=== PATIENT | female | born 1960 | race Caucasian/White ===

== ENCOUNTER 2016-05-27 10:35 | Emergency (ER) | payer OTHER ==
--- NOTE | ~2016-05-27 | HM ---
Unit #: [id number] #: [id number] Patient: CAMI CRUZ [id number] [facility]. [place], [place] [address] [id number] E MR#: [id number] NAME: CAMI CRUZ : 1960 SEX: F STUDY DATE/TIME: 06/04/2016 UNIT: [facility] ROOM: STUDY DESCRIPTION: HOLTER MONITOR Attending Physician: Joshua Fuentes D.O. Primary Care Physician: Jonathan Mojica M.D. CARDIOLOGY REPORT EXAM 24-hour Holter monitor FINDINGS 1. Underlying rhythm is normal sinus. Sinus rate varies between 42 as the slowest rate to 103 beats per minute as the maximal rate. 2. Frequent premature ventricular contractions are noted. There were 17,620 isolated PVCs. 332 premature ventricular couplets were recorded and there were 7 runs of ventricular tachycardia with a total of 22 beats. 3. Longest run of ventricular tachycardia consists of 4 beats at 1:39 p.m. 4. A 3-beat run of ventricular tachycardia at a rate of 125 beats per minute is seen. 5. Rare premature atrial contractions are seen with a total of 490 isolated PACs. 6. There were 2 runs of supraventricular tachycardia each consisting of 3 beats. Supraventricular tachycardia at a rate of 155 beats per minute with 1:1 AV conduction. 7. There is no significant AV gray slowing, no AV gray block, sinus arrest or sinus pauses noted. 8. Patient did not maintain any symptom or activity diary. IMPRESSION Abnormal 24-hour ambulatory monitoring shows: 1. Normal sinus rhythm with periods of sinus bradycardia. 2. Rare to occasional PACs. 3. Very frequent PVCs with 332 premature ventricular couplets and 7 runs of ventricular tachycardia. 4. PVCs are multifocal and multiform in origin. Dictated by... Tanisha Erazo TD: 06/04/2016 20:09 JOB #: [id number] Unit #: [id number] #: [id number] Patient: CAMI CRUZ CARDIOLOGY REPORT Page 1 of 1 X Felix Doshi MD HOLTER MONITOR REPORT
--- NOTE | ~2016-05-27 | CO ---
Unit #: [id number] #: [id number] Patient: CAMI AGOSTO [id number] [facility]. [place], [place] [address] [id number] E MR#: [id number] NAME: CAMI AGOSTO ROOM: Age: 55 Sex: F Admission Date: 05/27/2016 : 1960 Attending Physician: Joshua Fuentes D.O. Primary Care Physician: Jonathan Mojica M.D. Requesting Physician: Joshua Fuentes D.O. Consultation Date: 05/27/2016 CONSULTATION REPORT REASON FOR CONSULTATION Palpitations. HISTORY OF PRESENT ILLNESS Ms. Agosto is a 55-year-old, female with a history of coronary artery disease and coronary artery bypass grafting, once 16 years ago and the last approximately 8 years ago. She also has had a history of hypertension as well as a possible TIA. She was following up with Dr. Mojica for routine primary care visit this morning and it was thought that her heart rate was in the 30s. She was sent to the emergency room. She complained of no symptoms. No palpitations, no tachycardia, and no lightheadedness or dizziness. The monitor has been showing some occasional bigeminy with rates in the 60s and sinus rhythm. It is thought with (1) , probably the PVCs were felt, thus prompting a reading in the 30s. EKG has been completed, which shows sinus rhythm with PVCs as well. Currently, during my interview, she is feeling well with no complaints. No shortness of breath and no dizziness. This information is received from the patient as well as from record review. PRIOR CARDIAC TESTING HISTORY She states that she has not had any testing since her bypass surgery in 2008, except for an echocardiogram. PAST MEDICAL HISTORY Includes: 1. Drug overdose, 2013, with aspiration pneumonia, [facility]. 2. Coronary artery disease with coronary artery bypass grafting in 2009 range at [facility]. She also had coronary artery bypass grafting 15 years ago at [facility]. None of those records are available to me at this time. 3. Depression. 4. Hypertension. 5. 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 coli UTI and was hospitalized. 6. Seizure. 7. Blood clots. 8. Hepatitis C. 9. Hepatitis B. 10. Gastroesophageal reflux disease. 11. Pancreatitis. 12. Back fracture. 13. Chronic pain. Unit #: [id number] #: [id number] Patient: CAMI AGOSTO 14. COPD, advanced stage. 15. Large hiatal hernia. 16. Possible TIA, time unknown. ALLERGIES Include Cipro and codeine. HOME MEDICATIONS List is unknown as she states that she did not know she was going to be coming to the hospital. She did not bring a list of her medications. She does, though, remember that she takes a beta-melissa daily. SOCIAL HISTORY She smokes 1 pack a day or less and has been a smoker since age 8. She denies abuse of alcohol or drugs. FAMILY HISTORY Her mother of a NJ in her 60s. Her father at age 47 with an ulcer and pneumonia. She has a sister that also had coronary artery bypass grafting. REVIEW OF SYSTEMS GENERAL: Denies any fever, chills, flu-like symptoms, or unintentional weight loss. SKIN: Denies any rashes, ulcerations, or wounds. HEENT: Headache: Denied. Eyes: Denies any sudden change in vision. Ears: Denies any sudden changes in hearing or bleeding. Throat: Denies any problems swallowing. HEMATOLOGIC: Denies epistaxis, hemoptysis, hematuria, or melena. LUNGS: Positive for wheeze, cough, and shortness of breath; but no worse than normal and is at baseline. CHEST: Denies any pain, palpitations, tachycardia, PND, or orthopnea. GI: Denies any nausea, vomiting, diarrhea, constipation, or change in stools. GENITOURINARY: Denies any burning or urgency. EXTREMITIES: Denies any swelling or increased pain with walking. SPINE: She has chronic back pain, but no scoliosis. NEURO: No numbness, tingling. She had a seizure a few weeks ago, but denies any stroke-like symptoms, dizziness, unsteadiness, or falls. She does state that she had a sleep study a few years ago, but that she does not use CPAP and was only placed on oxygen for a short time. PHYSICAL EXAMINATION VITAL SIGNS: Blood pressure is 166/75, heart rate 72, respirations 20, temperature is 97.8, and 140 pounds. GENERAL: Well developed, well nourished, white female in no acute distress sitting in the bed. SKIN: No obvious rashes or ulcerations noted. HEENT: Eyes: PERRLA. No xanthelasma. Oral: Moist mucous membranes. No pallor. NECK: Right carotid bruit auscultated. No jugular vein distension. SPINE: No scoliosis. CHEST: Clear to auscultation bilaterally. No wheezes, rales, or rhonchi. CARDIAC: S1 and S2. No murmur, rub, gallop, or lift. ABDOMEN: Soft and nontender. Positive bowel sounds. EXTREMITIES: Bilateral pedal pulses +2. No edema. NEURO: Alert and oriented x3. Speech is clear. No obvious neuro deficits. Unit #: [id number] #: [id number] Patient: CAMI AGOSTO DIAGNOSTIC STUDIES LABORATORY: Include lipase of 15. PT of 11.7 and INR 1.1. Sodium 139, potassium 3.5, glucose 104, BUN 9, creatinine 0.9, AST 34, ALT 38, albumin 4.1, and magnesium 1.5. Troponin less than 0.05. Hemoglobin 15.3, hematocrit 46.1, platelets 404, and white blood cell count 13.2. CARDIOVASCULAR: EKG shows normal sinus rhythm with PVCs and ventricular rate of 64. IMPRESSION 1. PVCs and bigeminy. 2. Coronary artery disease with history of coronary artery bypass grafting. 3. Hypertension. 4. Seizure disorder. 5. Gastroesophageal reflux disease. 6. Right carotid bruit. PLAN I have discussed Mrs. Agosto with Dr. Fitzgerald. At this point, we will recommend a Holter monitor and follow up with Dr. Morrell in the next 3-4 weeks. At that time, we will evaluate for possible 2D echocardiogram and ultrasound of the carotid arteries. Thank you for this consultation. We will be happy to follow this patient as an outpatient in the future. Dictated by... Lexus Hernandes A.P.R.N. for Tanisha Da Silva/neida TD: 05/27/2016 13:19 JOB #: [id number] CONSULTATION REPORT Page 1 of 1 X X CONSULTATION REPORT
--- NOTE | ~2016-05-27 | EKG ---
PATIENT: CAMI CRUZ UNIT #: [id number] Ventricular Rate: 64 BPM Atrial Rate: 64 BPM P-R Interval: 116 ms QRS Duration: 94 ms Q-T Interval: 450 ms QTC Calculation(Bezet): 464 ms P [place]: 47 degrees Calculated R [place]: 32 degrees Calculated T [place]: -37 degrees Diagnosis Line: Sinus rhythm with occasional Premature ventricular Diagnosis Line: complexes Diagnosis Line: Possible Inferior infarct (cited on or before Diagnosis Line: 15-JAN-2016) Diagnosis Line: Abnormal ECG Diagnosis Line: When compared with ECG of 15-JAN-2016 18:15, Diagnosis Line: Premature ventricular complexes are now Present Diagnosis Line: T wave inversion more evident in Inferior leads Diagnosis Line: Confirmed by JENA LEONE MD ([id number]) on 05/28/2016 Diagnosis Line: 7:11:22 PM INTERPRETING MD: SULEMA CRAWFORD
--- NOTE | ~2016-05-27 | CR72 ---
[facility] A Service of [facility] RADIOLOGY TEXT RESULTS PATIENT: CAMI CRUZ LOCATION: [facility] : 56 UNIT #: [id number] AGE: [address]: Joshua Fuentes DO SEX: F ORDER DR: [id number] [facility] [address] [place], [place] [address] [id number] E MR#: [id number] Acc #: [id number] NAME: CAMI CRUZ : 1960 SEX: F STUDY DATE/TIME: 05/27/2016 10:28 UNIT: [facility] ROOM: STUDY DESCRIPTION: CR Chest Single View Portable Attending Physician: Joshua Fuentes D.O. Ordering Physician: Joshua Fuentes D.O. Primary Care Physician: Jonathan Mojica M.D. MEDICAL IMAGING REPORT This report is preliminary unless electronic signature is present EXAM Portable chest x-ray, 05/27/2016. HISTORY Low heart rate. Decreased heart rate. Short of air with activity. Duration today. CABG x2. Current smoker. TECHNIQUE AP left anterior oblique view of the chest is presented. COMPARISON 01/15/2016 FINDINGS Status post median sternotomy and CABG. Stable mild cardiac enlargement. Prior mid thoracic vertebroplasty. Lung volumes slightly lower than on prior examination. There is mild pulmonary vascular prominence. Marginally more pronounced than on prior study and likely reflecting both the lower lung volumes and bronchovascular crowding and mild generalized vascular congestion. There is no clear indication of ligia pulmonary edema at this time. No dense airspace disease, pleural effusion, or pneumothorax. No suspicious nodule. Dictated by... Tung Calles M.D. THIS IS AN ELECTRONICALLY VERIFIED REPORT Tung Calles M.D. at 05/28/2016 2:37 PM DAVID/shannan TD: 05/27/2016 12:40 [facility] A Service [facility] RADIOLOGY TEXT RESULTS PATIENT: CAMI CRUZ LOCATION: [facility] : 56 UNIT #: [id number] AGE: [address]: Joshua Fuentes DO SEX: F ORDER DR: JOB #: [id number] MEDICAL IMAGING REPORT Page 1 of 1 COPY
[~2016-05-27 10:35] MED LIST: ALBUTEROL20 ml INH; ASPIRIN81 M2 PO; HYDROCODONE/APA1 T15 PO; LASIX20 MG PO; LIPITOR40 MG PO; NEURONTIN800 MG PO; NORCO 10-325 TA1 TAB PO; NORVASC10 MG PO; PLAVIX PO; PREDNISONE10 MG/DOSE PO; PRILOSEC20 M1 PO; PROZAC PO; SPIRIVA18 MCG INH; VIBRAMYCIN100 M1 PO; XANAX0.5 M1 PO
[2016-05-27 10:54] LABS: BASOPHIL# 0.1 X10e3 (0-0.3); BASOPHIL% 1.1 % (0-2.5); EOSINOPHIL# 0.1 X10e3 (0-0.7); EOSINOPHIL% 1.1 % (0.0-7.0); HEMATOCRIT 46.1 % (35.0-45.0); HEMOGLOBIN 15.3 gm/dL (12.0-16.0); LYMPHOCYTE# 4.1 X10e3 (1.0-3.5); LYMPHOCYTE% 30.8 % (17.0-45.0); MEAN CELL VOLUME 91.3 FL (83-96); MEAN CORPUSCULAR HEMOGLOBIN 30.3 PG (28-34); MEAN CORPUSCULAR HGB CONC 33.2 g/dL (30-36); MEAN PLATELET VOLUME 7.6 FL (6.5-11.5); MONOCYTE# 0.7 X10e3 (0-1.0); MONOCYTE% 5.6 % (3.0-12.0); NEUTROPHIL# 8.1 X10e3 (1.5-7.1); NEUTROPHIL% 61.4 % (40-75); PLATELET COUNT 404 X10e3 (140-420); RED BLOOD COUNT 5.05 X10e (3.90-5.30); RED CELL DISTRIBUTION WIDTH 15.3 % (11.0-15.5); WHITE BLOOD COUNT 13.2 X10e3 (4.0-10.5)
[2016-05-27 11:01] LABS: DIFF IND NO
[2016-05-27 11:05] LABS: POC - CKMB <1.0 ng/mL (0.0-7.9); POC - TROPONIN <0.05 ng/mL (<=0.05)
[2016-05-27 11:17] LABS: ALBUMIN SERUM 4.1 g/dL (3.5-5.0); ALKALINE PHOSPHATASE 91 U/L (32-92); ALT (SGPT) 38 U/L (10-40); AST (SGOT) 34 U/L (10-42); BILIRUBIN,TOTAL 0.5 mg/dL (0.2-2.0); BLOOD UREA NITROGEN 9 mg/dL (9-23); CALCIUM SERUM 9.2 mg/dL (8.4-10.2); CARBON DIOXIDE 24 mmol/L (22-31); CHLORIDE 104 mmol/L (100-111); CREATININE SERUM 0.9 mg/dL (0.6-1.4); GLUCOSE FASTING 104 mg/dL (70-110); MAGNESIUM 1.5 mg/dL (1.6-3.0); POTASSIUM 3.5 mmol/L (3.5-5.1); PROTEIN TOTAL SERUM 8.8 g/dL (6.0-8.3); SODIUM 139 mmol/L (135-145)
[2016-05-27 11:18] LABS: BILIRUBIN, DIRECT <0.1 mg/dL (0.0-0.2); BILIRUBIN,INDIRECT 0.4 mg/dL (0.0-0.9)
[2016-05-27 11:37] LABS: INR 1.1; PARTIAL THROMBOPLASTIN TIME 26.2 SECONDS (23.5-31.3); PROTHROMBIN TIME (PATIENT) 11.7 SECONDS (9.6-11.5)
== END 2016-05-27 13:20 | disposition home or self-care (01) ==
LOC: CED 10:35
PROVIDERS: Emergency Medicine
DX: R00.1 Bradycardia, unspecified (principal); J44.9 Chronic obstructive pulmonary disease, unspecified; K21.9 Gastro-esophageal reflux disease without esophagitis; F41.9 Anxiety disorder, unspecified; F32.9 Major depressive disorder, single episode, unspecified; F17.200 Nicotine dependence, unspecified, uncomplicated; Z88.6 Allergy status to analgesic agent; Z88.1 Allergy status to other antibiotic agents
CPT/HCPCS: 36415; 71010; 80048; 80076; 82553; 83690; 83735; 84484; 85025; 85610; 85730; 93005; 93225; 93226; 99284; J3475